=== PATIENT | male | born 1995 | race Caucasian/White ===

== ENCOUNTER 2024-11-12 17:13 | Emergency (ER) | payer OTHER ==
[~2024-11-12] VITALS: Ht 175.3 cm; Wt 97.5 kg
[2024-11-12 17:18] VITALS: BP 166/106; PULSE 95; RESP 16; TEMP 97.7; O2SAT 98
--- NOTE | 2024-11-12 17:57 | RADIOLOGY REPORT ---
EXAM: DI FOOT, COMPLETE (3VW MIN) CLINICAL HISTORY: FOOT PAIN COMPARISON: None TECHNIQUE: DI FOOT, COMPLETE (3VW MIN) Findings/Impression: 3 views of the left foot. There is no evidence of an acute fracture, dislocation, blastic, or lytic lesions. Screw fixation of the calcaneus. Surgical clip overlying the navicular. No superficial soft tissue abnormalities.
--- NOTE | 2024-11-12 17:58 | RADIOLOGY REPORT ---
CLINICAL INDICATION: ANKLE PAIN TECHNIQUE: 3 radiographic views of the left ankle were obtained. Comparison: None FINDINGS/IMPRESSION: There is no evidence of acute fracture or dislocation. Postop changes of the left calcaneus with U- Nail on the medial side of the left foot. No prior studies for comparison The visualized joint space is well maintained. The alignment is anatomical. There is no radiopaque foreign body.
[2024-11-12] MEDS ORDERED: NAPR-56 PO (19:00)
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
== END 2024-11-12 19:16 | disposition home or self-care (01) ==
LOC: ER 17:14
DX: S93.602A Unspecified sprain of left foot, initial encounter (principal); M25.572 Pain in left ankle and joints of left foot; V89.2XXA Person injured in unspecified motor-vehicle accident, traffic, initial encounter; Y93.89 Activity, other specified; Y92.89 Other specified places as the place of occurrence of the external cause; Y99.8 Other external cause status
CPT/HCPCS: 73610; 73630; 99284